=== PATIENT | male | born 1985 | race Caucasian/White ===

== ENCOUNTER 2024-01-16 15:28 | Inpatient (IN) | payer SELFPAY ==
[2024-01-16 15:37] VITALS: BMI 54.5
[2024-01-16 16:59] LABS: INR 1.14 (0.83-1.09); PROTHROMBIN TIME (PATIENT) 13.1 SEC (9.7-13.0)
[2024-01-16 17:01] LABS: ACTIVATED PTT 37.3 SECONDS (25.2-36.5); BASO % 1.3 % (0-2.0); EOS % 1.5 % (0-4.5); HEMOGLOBIN 13.3 GM/dL (11.7-16.9); LYMPH % 19.9 % (8-40); MCHC 33.2 g/dl (32.0-35.9); MEAN CELL VOLUME 90.2 fl (80-96); MEAN PLT VOLUME 8.1 fl (7.5-11.1); MONO % 7.7 % (3.8-10.2); NEUT % 69.6 % (42.8-82.8); PLATELET COUNT 407 10^3/uL (134-434); RBC 4.44 M/mm3 (4.00-5.60); RDW 14.4 % (11.9-15.9); WHITE BLOOD COUNT 12.3 K/mm3 (4.0-10.0)
[2024-01-16 17:09] LABS: POTASSIUM 4.2 mmol/L (3.5-5.1)
[2024-01-16 17:11] LABS: ALBUMIN 3.3 g/dl (3.4-5.0); BLOOD UREA NITROGEN 13.6 mg/dL (7-18); CALCIUM 8.7 mg/dL (8.5-10.1); MAGNESIUM 2.1 mg/dL (1.8-2.4)
[2024-01-16 17:14] LABS: CREATININE 0.7 mg/dL (0.55-1.3); VENOUS BASE EXCESS 3.5 mmol/L (-2-2); VENOUS O2 SATURATION 82.6 % (70-80); VENOUS PCO2 61.6 mmHg (38-52); VENOUS PH 7.336 (7.310-7.410)
[2024-01-16 17:16] LABS: BILIRUBIN,TOTAL 0.5 mg/dL (0.2-1)
[2024-01-16 17:19] LABS: N-TERMINAL BNP 52.7 pg/ml (5-125)
[2024-01-16] MEDS ORDERED: ACETAMINOPHEN INJECTION 100 ML IVPB ONE (17:37)
[2024-01-16] MEDS: ACETAMINOPHEN 1000 MG/100 ML BAG IVPB ONE (18:40)
[2024-01-16] MEDS: SODIUM CHLORIDE 0.9% 500 ML INFUS.BAG IV ONE (18:40)
[2024-01-16] MEDS ORDERED: KETOROLAC TROMETHAMINE 15 MG/ML VIAL ONE (20:41)
[2024-01-16] MEDS: KETOROLAC TROMETHAMINE 15 MG/ML VIAL IVPUSH ONE (20:44)
[2024-01-16] MEDS ORDERED: ALBUTEROL SO4 2.5/IPRATROPIUM 0.5 INH SOL 3 ML VIAL.NEB. NEB ONE (23:22)
[2024-01-17] MEDS: methylPREDNISolone NA SUCC 125 MG/2 ML VIAL IVPUSH ONE (00:59)
[2024-01-17] MEDS: ACETAMINOPHEN 500 MG TABLET (FP) PO ONE (03:55)
[2024-01-17] MEDS ORDERED: KETOROLAC TROMETHAMINE 30 MG/1 ML VIAL IVPUSH PRN (07:49)
[2024-01-17 07:59] LABS: BASO % 0.6 % (0-2.0); EOS % 0.1 % (0-4.5); HEMATOCRIT 40.4 % (35.4-49); HEMOGLOBIN 13.3 GM/dL (11.7-16.9); LYMPH % 8.1 % (8-40); MCH 30.2 pg (25.7-33.7); MCHC 32.9 g/dl (32.0-35.9); MEAN PLT VOLUME 7.9 fl (7.5-11.1); MONO % 1.2 % (3.8-10.2); PLATELET COUNT 393 10^3/uL (134-434); RBC 4.39 M/mm3 (4.00-5.60); RDW 14.6 % (11.9-15.9)
[2024-01-17] MEDS: ACETAMINOPHEN 325 MG TABLET (FP) PO PRN ×2 (08:02→16:55)
[2024-01-17 08:15] LABS: POTASSIUM 4.8 mmol/L (3.5-5.1)
[2024-01-17 08:19] LABS: ALBUMIN 3.1 g/dl (3.4-5.0); BLOOD UREA NITROGEN 16.4 mg/dL (7-18); CALCIUM 8.9 mg/dL (8.5-10.1); MAGNESIUM 2.3 mg/dL (1.8-2.4)
[2024-01-17 08:21] LABS: URIC ACID 8.7 mg/dL (2.6-7.2)
[2024-01-17 08:23] LABS: BILIRUBIN,TOTAL 0.5 mg/dL (0.2-1); CREATININE 0.9 mg/dL (0.55-1.3); PHOSPHOROUS 2.5 mg/dL (2.5-4.9); TOT PROT 7.1 g/dl (6.4-8.2)
[2024-01-17] MEDS: ENOXAPARIN NA (PORCINE) 40 MG/0.4 ML DISP.SYRIN SQ SCH (10:38)
[2024-01-17] MEDS: FAMOTIDINE 20 MG TABLET PO SCH (12:26)
[2024-01-17] MEDS: KETOROLAC TROMETHAMINE 30 MG/1 ML VIAL IVPUSH SCH (12:26)
[2024-01-17 15:05] LABS: PH,URINE 5.5 (5.0-8.0); URINE APPEARANCE CLEAR; URINE BILIRUBIN NEGATIVE (NEGATIVE); URINE COLOR YELLOW; URINE GLUCOSE (UA) 1+ (NEGATIVE); URINE KETONE TRACE (NEGATIVE); URINE LEUK ESTERASE NEGATIVE (NEGATIVE); URINE NITRITE NEGATIVE (NEGATIVE); URINE PROTEIN NEGATIVE (NEGATIVE)
[2024-01-17] MEDS: ATORVASTATIN CA 20 MG TABLET (FP) PO SCH (21:40)
[2024-01-18 08:16] LABS: EOS % 0.5 % (0-4.5); HEMATOCRIT 38.6 % (35.4-49); HEMOGLOBIN 12.9 GM/dL (11.7-16.9); LYMPH % 29.2 % (8-40); MCH 30.3 pg (25.7-33.7); MCHC 33.5 g/dl (32.0-35.9); MEAN CELL VOLUME 90.3 fl (80-96); MEAN PLT VOLUME 7.6 fl (7.5-11.1); MONO % 6.4 % (3.8-10.2); NEUT % 62.9 % (42.8-82.8); PLATELET COUNT 378 10^3/uL (134-434); RBC 4.28 M/mm3 (4.00-5.60); RDW 14.8 % (11.9-15.9)
[2024-01-18 08:40] LABS: POTASSIUM 4.4 mmol/L (3.5-5.1)
[2024-01-18 08:43] LABS: CALCIUM 8.8 mg/dL (8.5-10.1)
[2024-01-18 08:45] LABS: BLOOD UREA NITROGEN 21.8 mg/dL (7-18)
[2024-01-18 08:47] LABS: CREATININE 0.7 mg/dL (0.55-1.3)
[2024-01-18] MEDS: ACETAMINOPHEN 325 MG TABLET (FP) PO PRN (09:44)
[2024-01-18] MEDS: traMADol HCL 50 MG TABLET PO PRN (16:10)
[2024-01-19 08:07] LABS: BASO % 0.4 % (0-2.0); HEMATOCRIT 39.1 % (35.4-49); HEMOGLOBIN 12.9 GM/dL (11.7-16.9); LYMPH % 27.8 % (8-40); MCH 30.1 pg (25.7-33.7); MCHC 32.9 g/dl (32.0-35.9); MEAN CELL VOLUME 91.7 fl (80-96); MEAN PLT VOLUME 7.6 fl (7.5-11.1); MONO % 6.2 % (3.8-10.2); NEUT % 64.6 % (42.8-82.8); PLATELET COUNT 380 10^3/uL (134-434); RBC 4.27 M/mm3 (4.00-5.60); RDW 14.6 % (11.9-15.9); WHITE BLOOD COUNT 11.4 K/mm3 (4.0-10.0)
[2024-01-19 08:25] LABS: POTASSIUM 4.4 mmol/L (3.5-5.1)
[2024-01-19 08:26] LABS: BLOOD UREA NITROGEN 21.2 mg/dL (7-18)
[2024-01-19 08:30] LABS: CREATININE 0.7 mg/dL (0.55-1.3)
[2024-01-19 15:10] VITALS: BP 151/95; PULSE 93; RESP 18; TEMP 98
[2024-01-19] MEDS: LOSARTAN POTASSIUM 50 MG TABLET PO SCH (17:26)
== END 2024-01-19 18:48 | disposition home or self-care (01) | DRG 143 ==
LOC: JER 15:28 → JERBED 22:00 → J7W 23:50 → OBSVTOIN 01-17 15:24 → J8W 01-18 04:15
PROVIDERS: ADMIT Internal Medicine; ATTEND Nurse Practitioner
DX: E66.2 Morbid (severe) obesity with alveolar hypoventilation (principal); Z68.43 Body mass index [BMI] 50.0-59.9, adult; I10 Essential (primary) hypertension; E78.5 Hyperlipidemia, unspecified; I25.10 Atherosclerotic heart disease of native coronary artery without angina pectoris; R73.9 Hyperglycemia, unspecified; R06.83 Snoring; D72.829 Elevated white blood cell count, unspecified; R06.09 Other forms of dyspnea; F17.210 Nicotine dependence, cigarettes, uncomplicated; M25.561 Pain in right knee
CPT/HCPCS: 0241U-QW; 36415; 71275-TC; 73564-TC-RT-FY; 80048; 80053; 80061; 81003; 82803; 82962; 83036; 83735; 83880; 84100; 84439; 84443; 84479; 84484; 84550; 85025; 85610; 85730; 86850; 86900; 86901; 93005; 93010; 93306-TC; 93970-TC; 97116-GP; 97161-GP; 99285-25; G0378; J0131; Q9967